=== PATIENT | male | born 1955 | race Caucasian/White ===

== ENCOUNTER → 2024-12-20 07:58 | Outpatient (REF) | payer MEDICARE, OTHER, SELFPAY | LOC: RCS 07:58 | PROVIDERS: ATTENDING PHYSICIAN Family Medicine | DX: R42 Dizziness and giddiness (principal) | CPT/HCPCS: 93306 ==

== ENCOUNTER 2025-01-28 13:18 | Emergency (ER) | payer MEDICARE, OTHER, SELFPAY ==
[2025-01-28 13:24] VITALS: BP 128/73
--- NOTE | 2025-01-28 14:53 | ED.GENMED ---
History of Present Illness
General
Chief Complaint: Head Injury
Source: patient
Exam Limitations: none
Time Seen by Provider: 01/28/25 14:36
Nursing documentation reviewed up to this point in time: agreed with
History of Present Illness
History of Present Illness:
Patient is a 69 y.o male w/ hx HLD, DM presenting to the emergency department for evaluation of head injury. Patient states that he was hit in the head by a very large metal pole when he was working out in his field around 1230PM. He denies any
complete loss of consciousness although states that he 'had his sheehan rung.' He was knocked down to ground. Patient reports feeling unsteady on his feet initially although states he is feeling better. He also felt that he had a brief episode of
having difficulty spelling words over text messages although this has also resolved.
Patient reports a laceration on his scalp which he cleaned with hydrogen peroxide prior to presenting to the ED.
He denies any headache, acute neck pain, vomiting, visual changes, numbness/tingling in extremity or weakness.
Patient was reportedly at his PCP office today for a routine visit and states his is up to date on all vaccinations although will call and confirm date of last Tdap.
Past History
Past History
ED Past Medical History: CAD, HTN, Hypercholesterolemia, NIDDM and Other (chronic low back pain)
ED Past Surgical History: Cardiac and Orthopedic (Internal stimulator inserted March 2016 then removed shortly thereafter due to a 'problem.')
Social History
Tobacco: Non-smoker
Alcohol: None
Drug: None
Personal:
Living: with family
Employment: Disabled
Review of Systems
Review of Systems
Allergies reviewed?: Yes
All Other Systems: ROS reviewed and negative except as documented in HPI and ROS
Phy Exam
Physical Exam
Physical Exam:
Vitals: Patient's vital signs are stable. Afebrile
General: Patient is well appearing, no acute distress
Skin: Approximately 5.5 cm superficial, linear laceration of scalp. Minimal active bleeding. No obvious foreign body.
Head: Normocephalic. Laceration to scalp as noted above.
Eyes: Sclera nonicteric. EOMs intact. Pupils equal round and reactive to light bilaterally. No nystagmus.
Throat: Protecting airway
Neck: Normal ROM, no cervical spine tenderness, no meningismus
Cardiac: Regular rate and rhythm, no murmurs.
Pulm: No evidence respiratory stress. Lungs clear bilaterally.
.
Abdomen: No abdominal tenderness.
Extremities: Bilateral upper and lower extremities atraumatic and nontender with full range of motion. No obvious trauma
Neuro: AAOx3. CN II-XII grossly intact on examination. No focal neurologic deficits. Normal finger-nose. Steady gait and fluid speech.
Psychiatric: Normal affect.
Course
Orders/Labs/Results
Orders:
Orders
01/28/25 14:51
CT Head W/o Iv Contrast Urgent
Comment:
Reason For Exam: trauma, laceration
Vital Signs
Initial and Last Documented VS:
Initial Vital Signs
Temp Pulse Resp BP Pulse Ox
97.8 F 71 18 128/73 99
01/28/25 13:24 01/28/25 13:24 01/28/25 13:24 01/28/25 13:24 01/28/25 13:24
Last Documented Vital Signs
Temp Pulse Resp BP Pulse Ox
97.8 F 71 20 128/73 99
01/28/25 13:24 01/28/25 13:24 01/28/25 15:18 01/28/25 13:24 01/28/25 13:24
Procedures
Laceration Closure
Scalp:
Status of Wound: clean
Size of Wound in cm: 5.5
Description of Wound Edges: sharp and ragged
Preparation: cleaned with saline and cleaned with Betadine
Anesthesia: 1% Lidocaine with epi
Revision/Debridement: routine- no revision
Wound exploration: explored to base- no FB
Type of Closure: single layer closure
Skin Closure Material: skin lucio (7)
Additional information:
7 lucio
MDM/Problems Addressed
Differential Diagnosis Includes:
Not limited to: Laceration, abrasion, concussion, subdural hematoma, epidural hematoma, etc.
MDM/Problems Addressed:
69-year-old male with head injury occurring today when he metal pole struck on the head. No loss of consciousness. He did have mild dizziness, unsteady gait, and brief confusion the symptoms have all resolved prior to my assessment. Vital stable.
Physical exam as above. Patient is A&O x 3 GCS of 15. He has no focal neurologic deficits on exam. He is fluid speech and steady gait. Patient does have a approximately 5.5 cm superficial linear laceration to top of scalp. No cervical spine
tenderness or evidence of neck trauma. No evidence of extremity trauma. Laceration will require primary closure today. His last tetanus shot was in 2022. Given degree of impact and brief unsteadiness/confusion�will obtain CT head to rule out
acute intracranial traumatic injury.
Update: CT head without acute traumatic injury. Incidental meningioma and Chiari type I malformation noted. Patient made aware of these fine and given report to follow-up with primary care. He remains well and comfortable appearing. He is
asymptomatic with no focal neurologic deficits. Continues to deny headache, dizziness, nausea, confusion.
Verbal consent obtained by patient. Wound anesthetized with 1% lidocaine with epinephrine. Wound thoroughly irrigated with normal saline and cleansed with Betadine. Wound was closed with 7 skin lucio. Wound edges very well-approximated.
Hemostasis obtained. Patient tolerated procedure very well. Discussed removal of lucio in 7 days with PCP. Did apply antibiotic and advised to keep clean and dry, covered while outside. Strict return precautions and wound care instructions
discussed. Patient will follow-up with PCP for further evaluation. Stable for discharge home.
Chronic conditions affecting care:
N/A
Acute Exacerbation and/or Progression of Chronic Illness:
N/A
*Radiology
Radiology exam reviewed: preliminary read by ED provider (Head CT reviewed by me-no acute abnormalities) and radiology read reviewed
*Pulse Oximetry
Patient hypoxic: no
*EKG
Interpreted by ED Provider?: NA
*Freelance Operator Interpretation
Rate: Freelance Operator- N/A
*Critical Care Note
Total Time (30-74mins, 75-104mins- exclusive of procedures): Not Applicable
ED Attending Note
-
Portions of this chart may have been created with voice recognition software.� Occasional wrong word or��sound alike� substitutions may have occurred due to the inherent limitations of voice recognition software.
Discharge Plan
Departure
Patient Disposition: Home (Routine Discharge)
Date of Disposition: 01/28/25
Time of Disposition: 16:22
Patient with high blood pressure during this ER visit?: No
Condition: Good
Covid-19: Not Applicable
Discharge Problem:
Laceration of scalp, Head injury
Instructions: Wound Care (DC), Head Injury in Adults (DC), Laceration Repair With Lucio (DC)
Prescriptions:
No Action
diazepam 5 MG tablet
5 mg PO TIDPRN PRN (Reason: spasms)
Patient Comments:
03/19/2020: last filled 02/12/20, 360 tabs for 90 days from [facility]
atorvastatin 20 MG tablet
20 mg PO QPM
metoprolol succinate 50 MG tablet extended release 24 hr
50 mg PO DAILY
hydrocodone-acetaminophen 1 EACH tablet
1 ea PO .Q4-6HPRN PRN (Reason: pain)
Patient Comments:
03/19/2020: last filled 02/20/20, 120 tabs for 20 days from [facility]
aspirin 81 MG tablet,delayed release (DR/EC)
81 mg PO DAILY
ascorbic acid (vitamin C) [Vitamin C] 500 MG tablet
500 mg PO DAILY
cholecalciferol (vitamin D3) 250 MCG tablet
500 mcg PO DAILY
nitroglycerin 0.4 MG tablet, sublingual
0.4 mg sublingual [id number] PRN (Reason: chest pain)
lisinopril 5 MG tablet
5 mg PO DAILY
coenzyme Q10 [Co Q-10] 200 MG capsule
200 mg PO DAILY
multivitamin with folic acid [Tab-A-Bryant] 1 TABLET tablet
1 tab PO DAILY
vancomycin [Firvanq] 50 MG/ML recon soln
250 mg PO Q6 Qty: 14 0RF
Rx Instructions:
Can be pill form if this is cheaper.
Referrals:
Philippe Quinn, [Family Provider] - Follow up in 1 week
Activity Restrictions/Additional Instructions:
RETURN TO THE EMERGENCY DEPARTMENT WITH ANY SIGNS OF INFECTION AROUND WOUND CARE INCLUDING SIGNIFICANT PAIN OR SWELLING,'S EXPANDING REDNESS AROUND WOUND, PURULENT DRAINAGE AROUND WOUND, FEVERS, OR ANY SEVERE HEADACHE, CHANGES IN BEHAVIOR, VISUAL
CHANGES, DIFFICULTIES AMBULATING, OR ANY OTHER CONCERNS
- As discussed�your CT scan showed no evidence of acute traumatic injury. However they did note incidental findings of a meningioma and a Chiari type I malformation. Please follow-up with your primary care for further imaging as needed.
-You may have sustained a concussion. It is important stable hydrated and get plenty of rest. Limit screen time.
- Your wound was closed with 7 lucio today. These will need to be removed in 1 week. This can be done at your primary care, urgent care, or emergency department. Apply topical antibiotic to wound to help provide infection. Wash wash wound
gently with soap and water every day and monitor closely for signs of infection.
- As mentioned above�you should follow-up with primary care in 1 week for staple removal and further evaluation
Monitor your symptoms closely and return to the emergency department with any acute worsening/new symptoms or any signs of infection
Interventions
Interventions:
*Risk Screen - Suicide Last Done: 01/28/25 13:24
*General Assessment Last Done: 01/28/25 13:24
*Neglect/Abuse Screening Last Done: 01/28/25 13:24
*ED- Fall Risk Assessment Last Done: 01/28/25 13:59
*ED COVID-19 Vaccine History Last Done: 01/28/25 13:59
*Nursing Disposition Last Done: 01/28/25 16:48
ED- Neurological Assessment Last Done: 01/28/25 13:59
ED-Skin Assessment Last Done: 01/28/25 13:59
Discharge Date and Time
Discharge Date/Time: 01/28/25 16:48
Print Language: [id number]
== END 2025-01-28 16:48 | disposition home or self-care (01) ==
LOC: EMR 13:18
PROVIDERS: EMERGENCY PHYSICIAN Emergency Medicine; FAMILY PHYSICIAN Family Medicine
DX: S09.90XA Unspecified injury of head, initial encounter (principal); S01.01XA Laceration without foreign body of scalp, initial encounter; W22.09XA Striking against other stationary object, initial encounter; E78.00 Pure hypercholesterolemia, unspecified; E11.9 Type 2 diabetes mellitus without complications; G93.5 Compression of brain; I10 Essential (primary) hypertension; I25.10 Atherosclerotic heart disease of native coronary artery without angina pectoris
CPT/HCPCS: 99284; 12002; 70450

== ENCOUNTER → 2025-07-30 15:07 | Outpatient (REF) | payer MEDICARE, OTHER, SELFPAY | LOC: HWRAD 15:07 | PROVIDERS: ATTENDING PHYSICIAN Family Medicine; FAMILY PHYSICIAN Family Medicine | DX: M25.512 Pain in left shoulder (principal); M79.622 Pain in left upper arm | CPT/HCPCS: 73030; 73060 ==